=== PATIENT | female | born 1980 ===

== ENCOUNTER 2020-09-03 14:27 | Emergency (ER) | payer OTHER ==
[~2020-09-03] VITALS: Ht 157.5 cm; Wt 63.9 kg
--- NOTE | 2020-09-03 14:53 | NUR ---
PT IS A 40F WHO FELL YESTERDAY AT [facility] IN [place]. SHE IS ABLE TO BEAR WEIGHT BUT THERE IS BRUISING TO THE KNEE. SHE DOES NOT APPEAR TO BE IN DISTRESS. CYCLING VITALS AND CALL LIGHT WITHIN REACH.
[2020-09-03] MEDS ORDERED: IBUPROFEN 200 MG TABLET PO ONE (15:00)
[2020-09-03] MEDS ORDERED: IBUPROFEN 600 MG TABLET ONE (15:10)
--- NOTE | 2020-09-03 16:03 | NUR ---
PT STATES HER KNEE PAIN IS MUCH BETTER AFTER IBUPROFEN. PROVIDER AT BEDSIDE FOR POC
[2020-09-03 16:54] VITALS: BP 118/70
--- NOTE | 2020-09-03 16:55 | NUR ---
Patient/Caregiver given discharge instructions and they have confirmed that they understand the instructions. Patient steady with crutch walking and spouse at side.
== END 2020-09-03 16:58 | disposition home or self-care (01) ==
LOC: ED 16:40
DX: S80.01XA Contusion of right knee, initial encounter (principal); W01.0XXA Fall on same level from slipping, tripping and stumbling without subsequent striking against object, initial encounter; Y93.89 Activity, other specified; Y92.410 Unspecified street and highway as the place of occurrence of the external cause; Y99.0 Civilian activity done for income or pay
CPT/HCPCS: 99283